=== PATIENT | female | born 1965 ===

== ENCOUNTER → 2016-10-18 13:13 | Outpatient (CLI) | payer BC ==
[2016-10-18 17:07] LABS: ERYTHROCYTE SEDIMENTATION RATE 5 mm/hr (0-20)
[2016-10-22 16:11] LABS: ANCA - ANTIMYELOPEROXIDASE <9.0 U/mL (0.0-9.0); ANCA - ANTIPROTEINASE 3 <3.5 U/mL (0.0-3.5); ANCA - ATYPICAL <1:20 titer (Neg:<1:20); ANCA - CYTOPLASMIC <1:20 titer (Neg:<1:20); ANCA - PERINUCLEAR <1:20 titer (Neg:<1:20)
== END | disposition home or self-care (01) ==
LOC: D.LABREF 13:13
PROVIDERS: Student in an Organized Health Care Education/Training Program
DX: R21 Rash and other nonspecific skin eruption (principal)